=== PATIENT | female | born 1970 | race American Indian/Alaskan Native ===

== ENCOUNTER 2019-12-10 06:44 | Emergency (ER) | payer BC ==
[2019-12-10] MEDS ORDERED: KETOROLAC 30 MG/1 ML INJ IV ONE (09:34)
[2019-12-10] MEDS ORDERED: diphenhydrAMINE 50 MG/ML VIAL IV ONE (09:34)
[2019-12-10] MEDS ORDERED: METOCLOPRAMIDE 10 MG/2 ML INJ IV ONE (09:34)
[2019-12-10] MEDS ORDERED: dexAMETHasone 4 MG/ML VIAL IV ONE (09:34)
--- NOTE | 2019-12-10 09:56 | Emergency Department Report ---
ED Headache HPI - General Chief Complaint: Headache Stated Complaint: SEVERE HEADACHE Time Seen by Provider: 12/10/19 09:25 - History of Present Illness Initial Comments: Patient is a 48-year-old female presents emergency room with complaints of a migraine headache that began 4 days ago. She states her headache is located on the right temporal region. She has associated nausea and vomiting. She states that she uses Emgality injection to prevent migraines and takes Maxalt for breakthrough migraines. She states that she also has been taking Tylenol and ibuprofen. She states that despite medications her migraine is not improving. She states that she does have a neurologist which she was seeing an scalpel but recently moved here and is in need of a new neurologist. She states that this migraine feels similar to her previous migraines. She states that she gets approximately 6-8 migraines a month. She denies any fever, vision changes, numbness, weakness, neck stiffness. She states she also has a past medical hi story of SVT and depression. She has an allergy to penicillin. She states that she is currently on her menstrual cycle. Allergies/Adverse Reactions: Allergies Penicillins Allergy (Verified 12/10/19 06:48) Anaphylaxis ED Review of Systems ROS: Stated complaint: SEVERE HEADACHE Other details as noted in HPI Comment: All other systems reviewed and negative ED Past Medical Hx - Past Medical History Hx Headaches / Migraines: Yes Hx Psychiatric Treatment: Yes (depression) Additional medical history: SVT - Surgical History Additional Surgical History: bunionectomy, tubal ligation - Social History Smoking Status: Never Smoker Substance Use Type: Alcohol ED Physical Exam - General Limitations: No Limitations General appearance: alert, in no apparent distress - Head Head exam: Present: atraumatic, normocephalic - Eye Eye exam: Present: normal appearance, PERRL, EOMI. Absent: scleral icterus, conjunctival injection, nystagmus, periorbital swelling, periorbital tenderness Pupils: Present: normal accommodation - ENT ENT exam: Present: mucous membranes moist - Neck Neck exam: Present: full ROM. Absent: meningismus - Respiratory Respiratory exam: Present: normal lung sounds bilaterally. Absent: respiratory distress, wheezes, rales, rhonchi, stridor, chest wall tenderness, accessory muscle use, decreased breath sounds, prolonged expiratory - Cardiovascular Cardiovascular Exam: Present: regular rate, normal rhythm, normal heart sounds. Absent: systolic murmur, diastolic murmur, rubs, gallop - Neurological Exam Neurological exam: Present: alert, oriented X3, CN II-XII intact, normal gait, other (normal finger to nose, normal heel to lizarraga, 5/5 muscle strength in the BUE/BLE, sensation intact throughout, no focal neuro deficit). Absent: motor sensory deficit - Psychiatric Psychiatric exam: Present: normal affect, normal mood - Skin Skin exam: Present: warm, dry, intact ED Course Vital Signs 12/10/19 12/10/19 12/10/19 06:48 10:00 10:30 Temperature 98.5 F Pulse Rate 80 Respiratory 18 16 18 Rate Blood Pressure 139/81 O2 Sat by Pulse 100 Oximetry ED Medical Decision Making - Medical Decision Making Patient is a 48-year-old female presents emergency room with complaints of a migraine headache that began 4 days ago. She states her headache is located on the right temporal region. She has associated nausea and vomiting. She states that she uses Emgality injection to prevent migraines and takes Maxalt for breakthrough migraines. She states that she also has been taking Tylenol and ibuprofen. She states that despite medications her migraine is not improving. She states that she does have a neurologist which she was seeing an scalpel but recently moved here and is in need of a new neurologist. She states that this migraine feels similar to her previous migraines. She states that she gets approximately 6-8 migraines a month. She denies any fever, vision changes, numbness, weakness, neck stiffness. She states she also has a past medical history of SVT and depression. She has an allergy to penicillin. She states that she is currently on her menstrual cycle. VSS. No focal neuro deficit on exam. Patient given Toradol, dexamethasone, Reglan, Benadryl. After medications symptoms improved and her headache was feeling much better. pt was resting comfortably in exam room. Patient will be referred to neurology and her primary care doctor. Advised patient Please continue taking your migraine medication as prescribed by your doctor. Increase your water intake. Follow-up with a primary care doctor. Follow-up with a neurologist. Return to emergency room for any new or worsening symptoms. - Differential Diagnosis migraine BUENO, tension BUENO, cluster BUENO, sinusitis, ICH, CVA, SDH Critical care attestation.: If time is entered above; I have spent that time in minutes in the direct care of this critically ill patient, excluding procedure time. ED Disposition Clinical Impression: Migraine headache Qualifiers: Migraine type: unspecified Status migrainosus presence: without status migrainosus Intractability: not intractable Qualified Code(s): G43.909 - Migraine, unspecified, not intractable, without status migrainosus Disposition: TO HOME OR SELFCARE Is pt being admited?: No Does the pt Need Aspirin: No Condition: Stable Instructions: Migraine Headache (ED) Additional Instructions: Please continue taking your migraine medication as prescribed by your doctor. Increase your water intake. Follow-up with a primary care doctor. Follow-up with a neurologist. Return to emergency room for any new or worsening symptoms. Referrals: PRIMARY CARE, [Primary Care Provider] - 2-3 Days PRANAY KERR MD [Staff Physician] - 2-3 Days KRISSY COLIN MD [Referring] - 2-3 Days ELIZABETH ROSAS MD [Staff Physician] - 2-3 Days Time of Disposition: 12:09 Print Language: KHMER
[2019-12-10 13:38] VITALS: BP 136/72
== END 2019-12-10 13:36 | disposition home or self-care (01) ==
LOC: ED 06:44
DX: G43.909 Migraine, unspecified, not intractable, without status migrainosus (principal); F32.9 Major depressive disorder, single episode, unspecified; Z98.51 Tubal ligation status; Z90.89 Acquired absence of other organs; Z88.0 Allergy status to penicillin
CPT/HCPCS: 96374; 96375; 99282; J1100; J1200; J1885; J2765